=== PATIENT | male | born 1985 | race Caucasian/White ===

== ENCOUNTER 2018-11-06 16:35 | Emergency (ER) | payer SELFPAY ==
[~2018-11-06] VITALS: Ht 167.6 cm; Wt 89.7 kg
[2018-11-06 16:48] VITALS: Ht 167.6 cm; Wt 89.7 kg
[2018-11-06] MEDS ORDERED: HYDROCODONE/APAP (5/325) TAB PO ONE (20:30)
[2018-11-06] MEDS ORDERED: IBUP-1542 PO (21:43)
[2018-11-06] MEDS ORDERED: HYDR-4011 PO (21:43)
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
[2018-11-06 23:09] VITALS: BP 133/82; PULSE 72; RESP 18
== END 2018-11-06 23:10 | disposition home or self-care (01) ==
LOC: FTE 16:35
DX: S42.115A Nondisplaced fracture of body of scapula, left shoulder, initial encounter for closed fracture (principal); V47.5XXA Car driver injured in collision with fixed or stationary object in traffic accident, initial encounter
CPT/HCPCS: 71250; 72040; 73030; 73060; 73200; 74176